=== PATIENT | male | born 1975 | race African-American/Black ===

== ENCOUNTER 2016-03-20 02:59 | Emergency (ER) | payer OTHER ==
[2016-03-20] MEDS ORDERED: ONDANSETRON 4MG/2ML VIAL (J2405) As Ordered ONE (04:07)
[2016-03-20] MEDS ORDERED: KETOROLAC 30 MG/ML VIAL (J1885) As Ordered ONE (04:07)
[2016-03-20 04:23] LABS: BASO # 0.2 K/mm3 (0.0-0.2); EOS # 0.1 K/mm3 (0.0-0.50); EOS % 0.6 % (0.0-3.0); LARGE UNSTAINED CELL # 0.1 K/mm3 (0.0-0.4); LARGE UNSTAINED CELL % 0.6 % (0.0-4.0); LYMPH # 1.2 K/mm3 (1.5-4.5); LYMPH % 5.8 % (24.0-44.0); MEAN CORPUSCULAR HEMOGLOBIN 29.7 pg (27.0-33.0); MEAN CORPUSCULAR HGB CONC 32.1 g/dl (32.0-36.5); MEAN CORPUSCULAR VOLUME 92.7 fl (80.0-96.0); MONO # 1.5 K/mm3 (0.0-0.8); NEUTROPHILS # 15.4 K/mm3 (1.8-7.7); NEUTROPHILS % 83.9 % (36.0-66.0); PLATELET COUNT, AUTOMATED 422 k/mm3 (150-450); RED CELL DISTRIBUTION WIDTH 13.5 % (11.5-14.5); WHITE BLOOD COUNT 18.4 K/mm3 (4.0-10.0)
[2016-03-20 04:29] LABS: AMPHETAMINES LEVEL URINE NEGATIVE (NEGATIVE); BENZODIAZEPINES URINE NEGATIVE (NEGATIVE); COCAINE METABOLITE URINE NEGATIVE (NEGATIVE); CONTROL LINE INT CTR LINE PRESENT; METHADONE URINE NEGATIVE (NEGATIVE); OPIATES URINE NEGATIVE (NEGATIVE); TRICYCLIC ANTIDEPRESS URINE NEGATIVE (NEGATIVE)
[2016-03-20 04:30] LABS: ALBUMIN 3.8 GM/DL (3.2-5.2); ALBUMIN/GLOBULIN RATIO 1.19 (1.00-1.93); ALKALINE PHOSPHATASE 93 U/L (45-117); ALT/SGPT 39 U/L (12-78); AMYLASE 62 U/L (25-115); ANION GAP 11 MEQ/L (8-16); AST/SGOT 18 U/L (15-37); BILIRUBIN,DIRECT 0.2 MG/DL (0.0-0.2); BILIRUBIN,TOTAL 0.6 MG/DL (0.2-1.0); BLOOD UREA NITROGEN 8 MG/DL (7-18); CALCIUM LEVEL 8.5 MG/DL (8.5-10.1); CARBON DIOXIDE LEVEL 30 MEQ/L (21-32); CHLORIDE LEVEL 104 MEQ/L (98-107); CREATININE FOR GFR 1.21 MG/DL (0.70-1.30); GLOMERULAR FILTRATION RATE > 60.0 (>60); GLUCOSE, FASTING 102 MG/DL (70-105); POTASSIUM SERUM 3.9 MEQ/L (3.5-5.1); SODIUM LEVEL 145 MEQ/L (136-145)
[2016-03-20] MEDS ORDERED: ISOVUE-370 76% 100ML VIAL (Q9967) As Ordered ONE (05:07)
--- NOTE | 2016-03-20 06:00 | REPUSA ---
CLINICAL HISTORY: Abdominal pain. TECHNIQUE: Multiple axial, sagittal and coronal CT images were obtained through the abdomen and pelvi s after administration of intravenous contrast material. COMMENTS: Moderate large bowel fecal stasis. The liver is of uniform attenuation without mass or defect. There is no intra or extrahepatic biliary ductal dilatation. The spleen is normal. The gallbladder is within normal limits. The pancreas is of normal contour and attenuation characteristics. There is no evidence of adrenal mass. Both kidneys demonstrate prompt and equal nephrograms. The kidneys are normal in size, shape and conf iguration. There is no evidence of renal or ureteral mass. No renal or ureteral calculi are identifie d. There is no hydroureter or hydronephrosis. No evidence for appendicitis. There is no bowel wall thickening. No evidence for small or large clair l obstruction. There is no evidence of abdominal ascites or lymphadenopathy. There is no evidence of intrinsic or extrinsic bladder mass. There is no pelvic ascites or lymphadeno quincy. Images of the lung bases show no evidence of pleural or parenchymal mass. Minimal right pleural effus ion. Atelectatic airspace disease of the lower lobes. The bony structures are free of lytic or blastic lesions. Mild diffuse thickening of the wall of the bladder. IMPRESSION: Large bowel fecal stasis. Minimal right pleural effusion. Passive atelectatic airspace disease of the lower lobes. Mildly thickened bladder. Thank you for your kind referral of this patient.
--- NOTE | 2016-03-20 06:56 | EDDOCDS ---
Physician Documentation [facility] Name: Marcelo Sotelo Age: 40 yrs Sex: Male : 1975 Arrival Date: 03/20/2016 Time: 02:59 Bed 17 Private MD: Disposition: 03/20/16 06:39 Discharged to Home/Self Care. Impression: Noninfective gastroenteritis and colitis, unspecified. - Condition is Stable. - Discharge Instructions: Clear Liquid Diet, Viral Gastroenteritis, Viral Gastroenteritis, [id number]. - Prescriptions for Zofran 4 mg Oral Tablet - take 1 tablet by ORAL route 4 times per day As needed; 10 tablet. - Medication Reconciliation, Local Pharmacy Hours form. - Follow up: Private Physician; When: As previously arranged; Reason: Continuance of care. - Problem is an acute exacerbation. - Symptoms have improved. Historical: - Allergies: No known drug Allergies; - Home Meds: 1. none - PMHx: Asthma; - Social history: Smoking status: Patient states former smoker of tobacco. No barriers to communication noted, The patient speaks fluent Dutch, Speaks appropriately for age. - Family history: Not pertinent. - : The pt / caregiver states he / she is not on anticoagulants. Unable to Verify Home Med List with the patient / caregiver. - Exposure Risk Screening:: None identified. Vital Signs: 03/20 03:18 BP 127 / 65; Pulse 106; Resp 20; Temp 99.2(O); Pulse Ox 100% on R/A; Weight 93.44 kg / brent 206 lbs (R); Height 6 ft. 2 in. (187.96 cm) (R); Pain 8/10; 06:46 BP 112 / 57 RA Sitting (auto/reg); Pulse 92; Resp 16; Temp 99.1(O); Pulse Ox 97% ; Pain jrd 2/10; 03:18 Body Mass Index 26.45 (93.44 kg, 187.96 cm) brent MDM: 03:30 -Influenza A&B Rapid Antigen - Nose Ordered. EDMS 03:41 NS 0.9% 1000 ml IV at bolus once ordered. mm11 03:41 Ondansetron 4 mg IVP once ordered. mm11 03:41 ketorolac 30 mg IVP once ordered. mm11 03:41 IV Saline Lock ordered. mm11 03:41 Undress patient appropriately for examination ordered. mm11 03:42 Amylase Ordered. EDMS 03:42 Basic Metabolic Profile Ordered. EDMS 03:42 CBC with Diff Ordered. EDMS 03:42 Lipase Ordered. EDMS 03:42 Liver Profile Ordered. EDMS 03:42 Urinalysis Ordered. EDMS 03:42 Urine Culture Ordered. EDMS 03:42 NOTHING BY MOUTH+DIET ordered. EDMS 04:12 Drug Eval Toxicology ED Only Ordered. EDMS 04:49 CBC with Diff Reviewed. mm11 04:49 Urinalysis Reviewed. mm11 04:49 -Influenza A&B Rapid Antigen - Nose Reviewed. mm11 04:49 Amylase Reviewed. mm11 04:49 Basic Metabolic Profile Reviewed. mm11 04:49 Lipase Reviewed. mm11 04:49 Liver Profile Reviewed. mm11 04:49 Drug Eval Toxicology ED Only Reviewed. mm11 04:50 CT ABD & PELVIS: IV Contrast Only Ordered. EDMS 04:56 Financial registration complete. hs2 05:09 [facility] Payment Agreement was scanned into [employer] and attached to record. hs2 06:33 CT ABD & PELVIS: IV Contrast Only Reviewed. mm11 Administered Medications: 04:15 Drug: NS 0.9% 1000 ml [sodium chloride 0.9 % intravenous solution] Route: IV; Rate: ko2 bolus; Site: right antecubital; 04:15 Drug: Ondansetron 4 mg [ondansetron HCl 2 mg/mL intravenous solution (2 mL)] Route: ko2 IVP; Site: right antecubital; 04:15 Drug: ketorolac 30 mg [ketorolac 30 mg/mL (1 mL) injection solution (1 mL)] Route: IVP; ko2 Site: right antecubital; Signatures: Dispatcher [employer] EDMS Sj Pat DO DO mm11 Yoselin Oakley RN RN ko2 Kusum Myles, Reg Reg hs2 The chart was reviewed and I authenticate all verbal orders and agree with the evaluation and treatment provided.Attachments: 05:09 [facility] Payment Agreement hs2 MTDD
--- NOTE | 2016-03-20 06:56 | EDDOCDS ---
Nurse's Notes [facility] Name: Marcelo Sotelo Age: 40 yrs Sex: Male : 1975 Arrival Date: 03/20/2016 Time: 02:59 Bed 17 Private MD: Diagnosis: Noninfective gastroenteritis and colitis, unspecified Presentation: 03/20 03:05 Presenting complaint: EMS states: not feeling well since yesterday. Started vomiting ko2 around 1 am. Fever of 102.7. Pt hasn't eaten in 24 hours. Nurse started a 20 gauge IV. Suicide/Homicide risk assessment- the patient denies having any suicidal and/or homicidal ideations and does not present with any other emotional, behavioral or mental health complaints. 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 Transition of care: patient was not received from another setting of care. Care prior to arrival: See EMS report. 03:05 Acuity: SIDRA Level 3 ko2 03:05 Method Of Arrival: Ambulance ko2 03:21 Adult Sepsis Screening: The patient does not have new or worsening altered mentation. ko2 Patient's respiratory rate is less than 22. Systolic blood pressure is greater than 100. Patient has a qSOFA score of 0- Negative Sepsis Screen. Care prior to arrival: Glucose check. 67. Triage Assessment: 03:18 General: Appears in no apparent distress, Behavior is appropriate for age, cooperative. ko2 Pain: Location: "aches all over". HIV screening NA for this visit Offered previously. The patient is triaged at the bedside. See Assessment in Nurses Notes section of ED record. Neurological: No deficits noted. Cardiovascular: Heart tones S1 S2 present. Respiratory: Airway is patent Respiratory effort is even, unlabored. GI: Abdomen is non- distended Bowel sounds present X 4 quads. Reports nausea, vomiting. Derm: Skin is normal. Musculoskeletal: Range of motion intact in all extremities. Historical: - Allergies: No known drug Allergies; - Home Meds: 1. none - PMHx: Asthma; - Social history: Smoking status: Patient states former smoker of tobacco. No barriers to communication noted, The patient speaks fluent Palauan, Speaks appropriately for age. - Family history: Not pertinent. - : The pt / caregiver states he / she is not on anticoagulants. Unable to Verify Home Med List with the patient / caregiver. - Exposure Risk Screening:: None identified. Screenin:20 Screening information is obtained from the patient. Fall risk: No risks identified. ko2 Assistance ADL's: requires no assistance with activities of daily living. Abuse/DV Screen: The patient / caregiver reports he/she is: not in a situation that causes fear, pain or injury. Nutritional screening: No deficits noted. Advance Directives: Currently, there is no health care proxy. There is no active DNR order. There is no living will. There is no Power of Flash Developer. home support is adequate. Assessment: 03:20 General: See triage assessment. ko2 04:30 General: Appears in no apparent distress, comfortable, Behavior is appropriate for age, ko2 cooperative. Pain: Location: "all over" Pain currently is 2 out of 10 on a pain scale. Neurological: Level of Consciousness is awake, alert. Respiratory: Airway is patent Respiratory effort is even, unlabored. GI: Denies nausea, vomiting. Derm: Skin is normal. 05:36 General: Appears in no apparent distress, comfortable, Behavior is appropriate for age, ko2 cooperative. Neurological: Level of Consciousness is awake, alert. Respiratory: Airway is patent Respiratory effort is even, unlabored. Derm: Skin is normal. 06:28 General: Appears in no apparent distress, comfortable, Behavior is appropriate for age, ko2 cooperative. Neurological: Level of Consciousness is awake, alert. Respiratory: Airway is patent Respiratory effort is even, unlabored. Derm: Skin is normal. 06:52 GI: Abd is soft. ko2 Vital Signs: 03:18 BP 127 / 65; Pulse 106; Resp 20; Temp 99.2(O); Pulse Ox 100% on R/A; Weight 93.44 kg brent (R); Height 6 ft. 2 in. (187.96 cm) (R); Pain 8/10; 06:46 BP 112 / 57 RA Sitting (auto/reg); Pulse 92; Resp 16; Temp 99.1(O); Pulse Ox 97% ; Pain jrd 2/10; 03:18 Body Mass Index 26.45 (93.44 kg, 187.96 cm) brent Vitals: 05:36 Log In Time N/A - ambulance arrival. ko2 ED Course: 03:03 Patient visited by Alize Braden, Shells Inspector. ml3 03:03 Patient moved to Waiting ml3 03:04 Yoselin Oakley,RN is Primary Nurse. ml3 03:04 Patient moved to 17 ml3 03:08 Triage Initiated ko2 03:19 Patient visited by Tanya Harper PCA. brent 03:19 Pt greeted and oriented to ED. Patient advised of names of staff involved in care, brent location of call [place], wait times and NPO status. Accompanied by Law Enforcement, Patient has correct armband on for positive identification. Bed in low position. Call light in reach. Side rails up X2. Pulse ox on. NIBP on. 03:25 Sj Pat DO is Attending Physician. mm11 03:25 Patient visited by Sj Pat DO. mm11 03:33 -Influenza A&B Rapid Antigen - Nose Sent. ko2 03:40 Patient visited by Sj Pat DO. mm11 04:06 Amylase Sent. ko2 04:06 Basic Metabolic Profile Sent. ko2 04:07 CBC with Diff Sent. ko2 04:07 Lipase Sent. ko2 04:07 Liver Profile Sent. ko2 04:07 Urinalysis Sent. ko2 04:07 Urine Culture Sent. ko2 04:15 Patient visited by Yoselin Oakley RN. ko2 04:15 Drug Eval Toxicology ED Only Sent. ko2 05:06 Patient visited by Yoselin Oakley RN. ko2 05:09 [facility] Payment Agreement was scanned into [employer] and attached to record. hs2 05:13 Patient name changed from Marcelo\\S\\\\S\\Sotelo\\S\\ to Marcelo\\S\\ \\S\\Sotelo. EDMS 06:02 Patient visited by Yoselin Oakley RN. ko2 06:16 CT ABD & PELVIS: IV Contrast Only Returned. EDMS 06:47 Patient visited by Les Wills PCA. jrd 06:51 Discontinued lock intact, bleeding controlled, pressure dressing applied, No ko2 redness/swelling at site. No procedures done that require assistance. 06:52 The patient / caregiver is instructed regarding the plan of care and ED course. ko2 Administered Medications: 04:15 Drug: NS 0.9% 1000 ml [sodium chloride 0.9 % intravenous solution] Route: IV; Rate: ko2 bolus; Site: right antecubital; 04:15 Drug: Ondansetron 4 mg [ondansetron HCl 2 mg/mL intravenous solution (2 mL)] Route: ko2 IVP; Site: right antecubital; 04:15 Drug: ketorolac 30 mg [ketorolac 30 mg/mL (1 mL) injection solution (1 mL)] Route: IVP; ko2 Site: right antecubital; Order Results: Lab Order: -Influenza A&B Rapid Antigen - Nose; SPEC'M 03/20/16 03:32 Test: INFLUENZA A RAPID SCR by ICA; Value: INFLUENZA A RESULTS NEGATIVE; Status: F Test: INFLUENZA A RAPID SCR by ICA; Value: Comments:; Status: F Test: INFLUENZA B RAPID SCR by ICA; Value: INFLUENZA B RESULTS NEGATIVE; Status: F Test Note: ; The Influenza test is a direct rapid immunoassay for the qualitative detection of Influenza viral antigen. Cell culture (Viral Culture) testing should be considered to confirm NEGATIVE results and to assist in detecting other viruses that can provide similar clinical symptoms. Please contact the lab within 24 hours ([phone]) if confirmatory testing is desired. Lab Order: Amylase; SPEC'M 03/20/16 04:03 Test: AMYLASE; Value: 62; Range: 25-115; Units: U/L; Status: F Lab Order: Basic Metabolic Profile; SPEC'M 03/20/16 04:03 Test: GLUCOSE, FASTING; Value: 102; Range: 70-105; Units: MG/DL; Status: F Test: BLOOD UREA NITROGEN; Value: 8; Range: 7-18; Units: MG/DL; Status: F Test: CREATININE FOR GFR; Value: 1.21; Range: 0.70-1.30; Units: MG/DL; Status: F Test: GLOMERULAR FILTRATION RATE; Value: > 60.0; Range: >60; Status: F Test: SODIUM LEVEL; Value: 145; Range: 136-145; Units: MEQ/L; Status: F Test: POTASSIUM SERUM; Value: 3.9; Range: 3.5-5.1; Units: MEQ/L; Status: F Test: CHLORIDE LEVEL; Value: 104; Range: 98-107; Units: MEQ/L; Status: F Test: CARBON DIOXIDE LEVEL; Value: 30; Range: 21-32; Units: MEQ/L; Status: F Test: ANION GAP; Value: 11; Range: 8-16; Units: MEQ/L; Status: F Test: CALCIUM LEVEL; Value: 8.5; Range: 8.5-10.1; Units: MG/DL; Status: F Test Note: ; Units are mL/min/1.73 m2 Chronic Kidney Disease Staging per NKF: Stage I & II GFR >=60 Normal to Mildly Decreased Stage III GFR 30-59 Moderately Decreased Stage IV GFR 15-29 Severely Decreased Stage V GFR <15 Very Little GFR Left ESRD GFR <15 on CABIN AGENT Lab Order: CBC with Diff; SPEC'M 03/20/16 04:03 Test: WHITE BLOOD COUNT; Value: 18.4; Range: 4.0-10.0; Abnormal: Above high normal; Units: K/mm3; Status: F Test: RED BLOOD COUNT; Value: 5.19; Range: 4.30-6.10; Units: M/mm3; Status: F Test: HEMOGLOBIN; Value: 15.4; Range: 14.0-18.0; Units: g/dl; Status: F Test: HEMATOCRIT; Value: 48.1; Range: 42.0-52.0; Units: %; Status: F Test: MEAN CORPUSCULAR VOLUME; Value: 92.7; Range: 80.0-96.0; Units: fl; Status: F Test: MEAN CORPUSCULAR HEMOGLOBIN; Value: 29.7; Range: 27.0-33.0; Units: pg; Status: F Test: MEAN CORPUSCULAR HGB CONC; Value: 32.1; Range: 32.0-36.5; Units: g/dl; Status: F Test: RED CELL DISTRIBUTION WIDTH; Value: 13.5; Range: 11.5-14.5; Units: %; Status: F Test: PLATELET COUNT, AUTOMATED; Value: 422; Range: 150-450; Units: k/mm3; Status: F Test: NEUTROPHILS %; Value: 83.9; Range: 36.0-66.0; Abnormal: Above high normal; Units: %; Status: F Test: LYMPH %; Value: 5.8; Range: 24.0-44.0; Abnormal: Below low normal; Units: %; Status: F Test: MONO %; Value: 8.0; Range: 0.0-5.0; Abnormal: Above high normal; Units: %; Status: F Test: EOS %; Value: 0.6; Range: 0.0-3.0; Units: %; Status: F Test: BASO %; Value: 1.0; Range: 0.0-1.0; Units: %; Status: F Test: LARGE UNSTAINED CELL %; Value: 0.6; Range: 0.0-4.0; Units: %; Status: F Test: NEUTROPHILS #; Value: 15.4; Range: 1.8-7.7; Abnormal: Above high normal; Units: K/mm3; Status: F Test: LYMPH #; Value: 1.2; Range: 1.5-4.5; Abnormal: Below low normal; Units: K/mm3; Status: F Test: MONO #; Value: 1.5; Range: 0.0-0.8; Abnormal: Above high normal; Units: K/mm3; Status: F Test: EOS #; Value: 0.1; Range: 0.0-0.50; Units: K/mm3; Status: F Test: BASO #; Value: 0.2; Range: 0.0-0.2; Units: K/mm3; Status: F Test: LARGE UNSTAINED CELL #; Value: 0.1; Range: 0.0-0.4; Units: K/mm3; Status: F Lab Order: Lipase; [facility] 03/20/16 04:03 Test: LIPASE; Value: 113; Range: 73-393; Units: U/L; Status: F Lab Order: Liver Profile; [facility] 03/20/16 04:03 Test: AST/SGOT; Value: 18; Range: 15-37; Units: U/L; Status: F Test: ALT/SGPT; Value: 39; Range: 12-78; Units: U/L; Status: F Test: ALKALINE PHOSPHATASE; Value: 93; Range: 45-117; Units: U/L; Status: F Test: BILIRUBIN,TOTAL; Value: 0.6; Range: 0.2-1.0; Units: MG/DL; Status: F Test: BILIRUBIN,DIRECT; Value: 0.2; Range: 0.0-0.2; Units: MG/DL; Status: F Test: TOTAL PROTEIN; Value: 7.0; Range: 6.4-8.2; Units: GM/DL; Status: F Test: ALBUMIN; Value: 3.8; Range: 3.2-5.2; Units: GM/DL; Status: F Test: ALBUMIN/GLOBULIN RATIO; Value: 1.19; Range: 1.00-1.93; Status: F Lab Order: Urinalysis; SPEC'M 03/20/16 04:03 Test: APPEARANCE, URINE; Value: CLEAR; Range: CLEAR; Status: F Test: COLOR, URINE; Value: YELLOW; Range: YELLOW; Status: F Test: PH,URINE; Value: 8.0; Range: 5.0-9.0; Units: UNITS; Status: F Test: SPECIFIC GRAVITY URINE AUTO; Value: 1.015; Range: 1.002-1.035; Status: F Test: PROTEIN, URINE AUTO; Value: NEGATIVE; Range: NEGATIVE; Units: mg/dL; Status: F Test: GLUCOSE, URINE (UA) AUTO; Value: NEGATIVE; Range: NEGATIVE; Units: mg/dL; Status: F Test: KETONE, URINE AUTO; Value: NEGATIVE; Range: NEGATIVE; Units: mg/dL; Status: F Test: UROBILINOGEN, URINE AUTO; Value: 2.0; Range: 0.0-2.0; Abnormal: Above high normal; Units: mg/dL; Status: F Test: BILIRUBIN, URINE AUTO; Value: NEGATIVE; Range: NEGATIVE; Status: F Test: NITRITE, URINE AUTO; Value: NEGATIVE; Range: NEGATIVE; Status: F Test: LEUKOCYTE ESTERASE, URINE AUTO; Value: TRACE; Range: NEGATIVE; Abnormal: Above high normal; Status: F Test: BLOOD, URINE BLOOD; Value: NEGATIVE; Range: NEGATIVE; Status: F Test: WBC, URINE AUTO; Value: 23; Range: 0-3; Abnormal: Above high normal; Units: /HPF; Status: F Test: RBC, URINE AUTO; Value: 2; Range: 0-3; Units: /HPF; Status: F Test: BACTERIA, URINE AUTO; Value: 1+; Range: NEGATIVE; Abnormal: Above high normal; Status: F Test: SQUAMOUS EPITHELIAL CELL UR AU; Value: 0; Range: 0-6; Units: /HPF; Status: F Test: MUCUS, URINE; Value: SMALL; Range: NEGATIVE; Status: F Test: HYALINE CAST, URINE AUTO; Value: 0; Range: 0-1; Units: /LPF; Status: F Lab Order: Drug Eval Toxicology ED Only; SPEC'M 03/20/16 04:03 Test: AMPHETAMINES LEVEL URINE; Value: NEGATIVE; Range: NEGATIVE; Status: F Test: BARBITURATES URINE; Value: NEGATIVE; Range: NEGATIVE; Status: F Test: BENZODIAZEPINES URINE; Value: NEGATIVE; Range: NEGATIVE; Status: F Test: CANNABINOIDS URINE; Value: NEGATIVE; Range: NEGATIVE; Status: F Test: COCAINE METABOLITE URINE; Value: NEGATIVE; Range: NEGATIVE; Status: F Test: METHADONE URINE; Value: NEGATIVE; Range: NEGATIVE; Status: F Test: OPIATES URINE; Value: NEGATIVE; Range: NEGATIVE; Status: F Test: TRICYCLIC ANTIDEPRESS URINE; Value: NEGATIVE; Range: NEGATIVE; Status: F Test Note: ; ALL PRESUMPTIVE POSITIVE FINDINGS ARE UNCONFIRMED NORMAL VALUES THRESHOLD IN NG/ML AMPHETAMINES 1000 METHAMPHETAMINES 1000 BARBITURATES 300 BENZODIAZEPINES 300 CANNABINOIDS (THC) 50 COCAINE METABOLITE 300 METHADONE 300 OPIATES 300 PHENCYCLIDINE 25 TRICYCLIC ANTIDEPRESSANTS 1000 RESULTS ARE FOR MEDICAL PURPOSES ONLY. ALL URINE SPECIMENS WILL BE SAVED FOR 3 DAYS. IF CONFIRMATION OF A PRESUMPTIVE POSTIVE SCREEN RESULT IS DESIRED, CALL CHEMISTRY ([phone]) AND REQUEST URINE TO BE SENT TO REFERENCE LAB. FOR A LIST OF CLOSELY RELATED COMPOUNDS PLEASE CALL THE LAB. Radiology Order: CT ABD & PELVIS: IV Contrast Only Test: CT ABD & PELVIS: IV Contrast Only REASON FOR EXAMINATION: Abdomen Pain; ; CLINICAL HISTORY: Abdominal pain.; TECHNIQUE: Multiple axial, sagittal and coronal CT images were obtained through the abdomen and pelvi; s after administration of intravenous contrast material.; COMMENTS:; Moderate large bowel fecal stasis.; The liver is of uniform attenuation without mass or defect. There is no intra or extrahepatic biliary; ductal dilatation. The spleen is normal. The gallbladder is within normal limits. The pancreas is of; normal contour and attenuation characteristics. There is no evidence of adrenal mass.; Both kidneys demonstrate prompt and equal nephrograms. The kidneys are normal in size, shape and conf; iguration. There is no evidence of renal or ureteral mass. No renal or ureteral calculi are identifie; d. There is no hydroureter or hydronephrosis.; No evidence for appendicitis. There is no bowel wall thickening. No evidence for small or large clair; l obstruction. There is no evidence of abdominal ascites or lymphadenopathy.; There is no evidence of intrinsic or extrinsic bladder mass. There is no pelvic ascites or lymphadeno; quincy.; Images of the lung bases show no evidence of pleural or parenchymal mass. Minimal right pleural effus; ion.; Atelectatic airspace disease of the lower lobes.; The bony structures are free of lytic or blastic lesions. Mild diffuse thickening of the wall of the; bladder.; IMPRESSION:; Large bowel fecal stasis.; Minimal right pleural effusion.; Passive atelectatic airspace disease of the lower lobes.; Mildly thickened bladder.; Thank you for your kind referral of this patient.; ; Outcome: 06:39 Discharge ordered by Provider. mm11 06:51 Admission hand-off: Report called to [facility] at [facility]. mar 06:52 Discharge Assessment: Patient awake, alert and oriented x 3. No cognitive and/or ko2 functional deficits noted. Patient verbalized understanding of disposition instructions. patient administered narcotics - no. The following High Risk Discharge criteria are identified: None. Discharged to [facility]. Condition: stable. Discharge instructions given to patient, Instructed on discharge instructions, follow up and referral plans. Demonstrated understanding of instructions, Pt was receptive of discharge instructions/ teaching. CT Study completed. Property :Personal belongings accompany Pt. 06:55 Patient left the ED. ko2 Signatures: Dispatcher [employer] EDEmilie Roblero RN RN jan Lopresti, Mary-Elizabeth, Shells Inspector Unit ml3 Sj Pat DO DO mm11 Tanya Harper, FIBER OPTIC TECHNICIAN FIBER OPTIC TECHNICIAN Yoselin Zambrano RN RN ko2 Les Wills, FIBER OPTIC TECHNICIAN FIBER OPTIC TECHNICIAN Kusum Harding, Reg Reg hs2 MTDD
--- NOTE | 2016-03-22 07:56 | EDDOCDS ---
Physician Documentation [facility] Name: Marcelo Sotelo Age: 40 yrs Sex: Male : 1975 Arrival Date: 03/20/2016 Time: 02:59 Bed 17 Private MD: Disposition: 03/20/16 06:39 Discharged to Home/Self Care. Impression: Noninfective gastroenteritis and colitis, unspecified. - Condition is Stable. - Discharge Instructions: Clear Liquid Diet, Viral Gastroenteritis, Viral Gastroenteritis, [id number]. - Prescriptions for Zofran 4 mg Oral Tablet - take 1 tablet by ORAL route 4 times per day As needed; 10 tablet. - Medication Reconciliation, Local Pharmacy Hours form. - Follow up: Private Physician; When: As previously arranged; Reason: Continuance of care. - Problem is an acute exacerbation. - Symptoms have improved. Historical: - Allergies: No known drug Allergies; - Home Meds: 1. none - PMHx: Asthma; - Social history: Smoking status: Patient states former smoker of tobacco. No barriers to communication noted, The patient speaks fluent Vietnamese, Speaks appropriately for age. - Family history: Not pertinent. - : The pt / caregiver states he / she is not on anticoagulants. Unable to Verify Home Med List with the patient / caregiver. - Exposure Risk Screening:: None identified. Vital Signs: 03/20 03:18 BP 127 / 65; Pulse 106; Resp 20; Temp 99.2(O); Pulse Ox 100% on R/A; Weight 93.44 kg / brent 206 lbs (R); Height 6 ft. 2 in. (187.96 cm) (R); Pain 8/10; 06:46 BP 112 / 57 RA Sitting (auto/reg); Pulse 92; Resp 16; Temp 99.1(O); Pulse Ox 97% ; Pain jrd 2/10; 03:18 Body Mass Index 26.45 (93.44 kg, 187.96 cm) brent MDM: 03:30 -Influenza A&B Rapid Antigen - Nose Ordered. EDMS 03:41 NS 0.9% 1000 ml IV at bolus once ordered. mm11 03:41 Ondansetron 4 mg IVP once ordered. mm11 03:41 ketorolac 30 mg IVP once ordered. mm11 03:41 IV Saline Lock ordered. mm11 03:41 Undress patient appropriately for examination ordered. mm11 03:42 Amylase Ordered. EDMS 03:42 Basic Metabolic Profile Ordered. EDMS 03:42 CBC with Diff Ordered. EDMS 03:42 Lipase Ordered. EDMS 03:42 Liver Profile Ordered. EDMS 03:42 Urinalysis Ordered. EDMS 03:42 Urine Culture Ordered. EDMS 03:42 NOTHING BY MOUTH+DIET ordered. EDMS 04:12 Drug Eval Toxicology ED Only Ordered. EDMS 04:49 CBC with Diff Reviewed. mm11 04:49 Urinalysis Reviewed. mm11 04:49 -Influenza A&B Rapid Antigen - Nose Reviewed. mm11 04:49 Amylase Reviewed. mm11 04:49 Basic Metabolic Profile Reviewed. mm11 04:49 Lipase Reviewed. mm11 04:49 Liver Profile Reviewed. mm11 04:49 Drug Eval Toxicology ED Only Reviewed. mm11 04:50 CT ABD & PELVIS: IV Contrast Only Ordered. EDMS 04:56 Financial registration complete. hs2 05:09 [facility] Payment Agreement was scanned into [facility] and attached to record. hs2 06:33 CT ABD & PELVIS: IV Contrast Only Reviewed. mm11 12:28 T-Sheet-- Draft Copy was scanned into [facility] and attached to record. gb 12:28 Radiology Report was scanned into [facility] and attached to record. gb 13:45 PCR was scanned into [facility] and attached to record. gb Administered Medications: 04:15 Drug: NS 0.9% 1000 ml [sodium chloride 0.9 % intravenous solution] Route: IV; Rate: ko2 bolus; Site: right antecubital; 04:15 Drug: Ondansetron 4 mg [ondansetron HCl 2 mg/mL intravenous solution (2 mL)] Route: ko2 IVP; Site: right antecubital; 04:15 Drug: ketorolac 30 mg [ketorolac 30 mg/mL (1 mL) injection solution (1 mL)] Route: IVP; ko2 Site: right antecubital; Signatures: Dispatcher [employer] EDMS Gabbie Lopez, Reg Reg gb Sj Pat DO DO mm11 Yoselin Oakley RN RN ko2 Kusum Myles, Reg Reg hs2 The chart was reviewed and I authenticate all verbal orders and agree with the evaluation and treatment provided.Attachments: 05:09 [facility] Payment Agreement hs2 12:28 T-Sheet-- Draft Copy gb Chart Complete MTDD
--- NOTE | 2016-03-22 07:56 | EDDOCDS ---
Physician Documentation [facility] Name: Marcelo Sotelo Age: 40 yrs Sex: Male : 1975 Arrival Date: 03/20/2016 Time: 02:59 Bed 17 Private MD: Disposition: 03/20/16 06:39 Discharged to Home/Self Care. Impression: Noninfective gastroenteritis and colitis, unspecified. - Condition is Stable. - Discharge Instructions: Clear Liquid Diet, Viral Gastroenteritis, Viral Gastroenteritis, [id number]. - Prescriptions for Zofran 4 mg Oral Tablet - take 1 tablet by ORAL route 4 times per day As needed; 10 tablet. - Medication Reconciliation, Local Pharmacy Hours form. - Follow up: Private Physician; When: As previously arranged; Reason: Continuance of care. - Problem is an acute exacerbation. - Symptoms have improved. Historical: - Allergies: No known drug Allergies; - Home Meds: 1. none - PMHx: Asthma; - Social history: Smoking status: Patient states former smoker of tobacco. No barriers to communication noted, The patient speaks fluent Guatemalan, Speaks appropriately for age. - Family history: Not pertinent. - : The pt / caregiver states he / she is not on anticoagulants. Unable to Verify Home Med List with the patient / caregiver. - Exposure Risk Screening:: None identified. Vital Signs: 03/20 03:18 BP 127 / 65; Pulse 106; Resp 20; Temp 99.2(O); Pulse Ox 100% on R/A; Weight 93.44 kg / brent 206 lbs (R); Height 6 ft. 2 in. (187.96 cm) (R); Pain 8/10; 06:46 BP 112 / 57 RA Sitting (auto/reg); Pulse 92; Resp 16; Temp 99.1(O); Pulse Ox 97% ; Pain jrd 2/10; 03:18 Body Mass Index 26.45 (93.44 kg, 187.96 cm) brent MDM: 03:30 -Influenza A&B Rapid Antigen - Nose Ordered. EDMS 03:41 NS 0.9% 1000 ml IV at bolus once ordered. mm11 03:41 Ondansetron 4 mg IVP once ordered. mm11 03:41 ketorolac 30 mg IVP once ordered. mm11 03:41 IV Saline Lock ordered. mm11 03:41 Undress patient appropriately for examination ordered. mm11 03:42 Amylase Ordered. EDMS 03:42 Basic Metabolic Profile Ordered. EDMS 03:42 CBC with Diff Ordered. EDMS 03:42 Lipase Ordered. EDMS 03:42 Liver Profile Ordered. EDMS 03:42 Urinalysis Ordered. EDMS 03:42 Urine Culture Ordered. EDMS 03:42 NOTHING BY MOUTH+DIET ordered. EDMS 04:12 Drug Eval Toxicology ED Only Ordered. EDMS 04:49 CBC with Diff Reviewed. mm11 04:49 Urinalysis Reviewed. mm11 04:49 -Influenza A&B Rapid Antigen - Nose Reviewed. mm11 04:49 Amylase Reviewed. mm11 04:49 Basic Metabolic Profile Reviewed. mm11 04:49 Lipase Reviewed. mm11 04:49 Liver Profile Reviewed. mm11 04:49 Drug Eval Toxicology ED Only Reviewed. mm11 04:50 CT ABD & PELVIS: IV Contrast Only Ordered. EDMS 04:56 Financial registration complete. hs2 05:09 [facility] Payment Agreement was scanned into [employer] and attached to record. hs2 06:33 CT ABD & PELVIS: IV Contrast Only Reviewed. mm11 12:28 T-Sheet-- Draft Copy was scanned into [employer] and attached to record. gb 12:28 Radiology Report was scanned into [facility] and attached to record. gb 13:45 PCR was scanned into [employer] and attached to record. gb Administered Medications: 04:15 Drug: NS 0.9% 1000 ml [sodium chloride 0.9 % intravenous solution] Route: IV; Rate: ko2 bolus; Site: right antecubital; 04:15 Drug: Ondansetron 4 mg [ondansetron HCl 2 mg/mL intravenous solution (2 mL)] Route: ko2 IVP; Site: right antecubital; 04:15 Drug: ketorolac 30 mg [ketorolac 30 mg/mL (1 mL) injection solution (1 mL)] Route: IVP; ko2 Site: right antecubital; Signatures: Dispatcher [employer] EDMS Gabbie Loepz, Reg Reg gb Sj Pat DO DO mm11 Yoselin Oakley RN RN ko2 Kusum Myles, Reg Reg hs2 The chart was reviewed and I authenticate all verbal orders and agree with the evaluation and treatment provided.Attachments: 05:09 [facility] Payment Agreement hs2 12:28 T-Sheet-- Draft Copy gb Chart Complete MTDD
--- NOTE | 2016-03-22 07:56 | EDDOCDS ---
Nurse's Notes [facility] Name: Marcelo Sotelo Age: 40 yrs Sex: Male : 1975 Arrival Date: 03/20/2016 Time: 02:59 Bed 17 Private MD: Diagnosis: Noninfective gastroenteritis and colitis, unspecified Presentation: 03/20 03:05 Presenting complaint: EMS states: not feeling well since yesterday. Started vomiting ko2 around 1 am. Fever of 102.7. Pt hasn't eaten in 24 hours. Nurse started a 20 gauge IV. Suicide/Homicide risk assessment- the patient denies having any suicidal and/or homicidal ideations and does not present with any other emotional, behavioral or mental health complaints. Status: Patient is not a emergency services professional or dependent. Transition of care: patient was not received from another setting of care. Care prior to arrival: See EMS report. 03:05 Acuity: SIDRA Level 3 ko2 03:05 Method Of Arrival: Ambulance ko2 03:21 Adult Sepsis Screening: The patient does not have new or worsening altered mentation. ko2 Patient's respiratory rate is less than 22. Systolic blood pressure is greater than 100. Patient has a qSOFA score of 0- Negative Sepsis Screen. Care prior to arrival: Glucose check. 67. Triage Assessment: 03:18 General: Appears in no apparent distress, Behavior is appropriate for age, cooperative. ko2 Pain: Location: "aches all over". HIV screening NA for this visit Offered previously. The patient is triaged at the bedside. See Assessment in Nurses Notes section of ED record. Neurological: No deficits noted. Cardiovascular: Heart tones S1 S2 present. Respiratory: Airway is patent Respiratory effort is even, unlabored. GI: Abdomen is non- distended Bowel sounds present X 4 quads. Reports nausea, vomiting. Derm: Skin is normal. Musculoskeletal: Range of motion intact in all extremities. Historical: - Allergies: No known drug Allergies; - Home Meds: 1. none - PMHx: Asthma; - Social history: Smoking status: Patient states former smoker of tobacco. No barriers to communication noted, The patient speaks fluent Bruneian, Speaks appropriately for age. - Family history: Not pertinent. - : The pt / caregiver states he / she is not on anticoagulants. Unable to Verify Home Med List with the patient / caregiver. - Exposure Risk Screening:: None identified. Screenin:20 Screening information is obtained from the patient. Fall risk: No risks identified. ko2 Assistance ADL's: requires no assistance with activities of daily living. Abuse/DV Screen: The patient / caregiver reports he/she is: not in a situation that causes fear, pain or injury. Nutritional screening: No deficits noted. Advance Directives: Currently, there is no health care proxy. There is no active DNR order. There is no living will. There is no Power of All Around Gear Machine Operator. home support is adequate. Assessment: 03:20 General: See triage assessment. ko2 04:30 General: Appears in no apparent distress, comfortable, Behavior is appropriate for age, ko2 cooperative. Pain: Location: "all over" Pain currently is 2 out of 10 on a pain scale. Neurological: Level of Consciousness is awake, alert. Respiratory: Airway is patent Respiratory effort is even, unlabored. GI: Denies nausea, vomiting. Derm: Skin is normal. 05:36 General: Appears in no apparent distress, comfortable, Behavior is appropriate for age, ko2 cooperative. Neurological: Level of Consciousness is awake, alert. Respiratory: Airway is patent Respiratory effort is even, unlabored. Derm: Skin is normal. 06:28 General: Appears in no apparent distress, comfortable, Behavior is appropriate for age, ko2 cooperative. Neurological: Level of Consciousness is awake, alert. Respiratory: Airway is patent Respiratory effort is even, unlabored. Derm: Skin is normal. 06:52 GI: Abd is soft. ko2 Vital Signs: 03:18 BP 127 / 65; Pulse 106; Resp 20; Temp 99.2(O); Pulse Ox 100% on R/A; Weight 93.44 kg brent (R); Height 6 ft. 2 in. (187.96 cm) (R); Pain 8/10; 06:46 BP 112 / 57 RA Sitting (auto/reg); Pulse 92; Resp 16; Temp 99.1(O); Pulse Ox 97% ; Pain jrd 2/10; 03:18 Body Mass Index 26.45 (93.44 kg, 187.96 cm) brent Vitals: 05:36 Log In Time N/A - ambulance arrival. ko2 ED Course: 03:03 Patient visited by Alize Braden, Plastic Top Assembler. ml3 03:03 Patient moved to Waiting ml3 03:04 Yoselin Oakley,RN is Primary Nurse. ml3 03:04 Patient moved to 17 ml3 03:08 Triage Initiated ko2 03:19 Patient visited by Tanya Harper PCA. brent 03:19 Pt greeted and oriented to ED. Patient advised of names of staff involved in care, brent location of call [place], wait times and NPO status. Accompanied by Law Enforcement, Patient has correct armband on for positive identification. Bed in low position. Call light in reach. Side rails up X2. Pulse ox on. NIBP on. 03:25 Sj Pat DO is Attending Physician. mm11 03:25 Patient visited by Sj Pat DO. mm11 03:33 -Influenza A&B Rapid Antigen - Nose Sent. ko2 03:40 Patient visited by Sj Pat DO. mm11 04:06 Amylase Sent. ko2 04:06 Basic Metabolic Profile Sent. ko2 04:07 CBC with Diff Sent. ko2 04:07 Lipase Sent. ko2 04:07 Liver Profile Sent. ko2 04:07 Urinalysis Sent. ko2 04:07 Urine Culture Sent. ko2 04:15 Patient visited by Yoselin Oakley RN. ko2 04:15 Drug Eval Toxicology ED Only Sent. ko2 05:06 Patient visited by Yoselin Oakley RN. ko2 05:09 [facility] Payment Agreement was scanned into [employer] and attached to record. hs2 05:13 Patient name changed from Marcelo\\S\\\\S\\Sotelo\\S\\ to Marcelo\\S\\ \\S\\Sotelo. EDMS 06:02 Patient visited by Yoselin Oakley RN. ko2 06:16 CT ABD & PELVIS: IV Contrast Only Returned. EDMS 06:47 Patient visited by Les Wills PCA. jrd 06:51 Discontinued lock intact, bleeding controlled, pressure dressing applied, No ko2 redness/swelling at site. No procedures done that require assistance. 06:52 The patient / caregiver is instructed regarding the plan of care and ED course. ko2 12:28 T-Sheet-- Draft Copy was scanned into [employer] and attached to record. gb 12:28 Radiology Report was scanned into [employer] and attached to record. gb 13:45 PCR was scanned into [employer] and attached to record. gb Administered Medications: 04:15 Drug: NS 0.9% 1000 ml [sodium chloride 0.9 % intravenous solution] Route: IV; Rate: ko2 bolus; Site: right antecubital; 04:15 Drug: Ondansetron 4 mg [ondansetron HCl 2 mg/mL intravenous solution (2 mL)] Route: ko2 IVP; Site: right antecubital; 04:15 Drug: ketorolac 30 mg [ketorolac 30 mg/mL (1 mL) injection solution (1 mL)] Route: IVP; ko2 Site: right antecubital; Order Results: Lab Order: -Influenza A&B Rapid Antigen - Nose; SPEC'M 03/20/16 03:32 Test: INFLUENZA A RAPID SCR by ICA; Value: INFLUENZA A RESULTS NEGATIVE; Status: F Test: INFLUENZA A RAPID SCR by ICA; Value: Comments:; Status: F Test: INFLUENZA B RAPID SCR by ICA; Value: INFLUENZA B RESULTS NEGATIVE; Status: F Test Note: ; The Influenza test is a direct rapid immunoassay for the qualitative detection of Influenza viral antigen. Cell culture (Viral Culture) testing should be considered to confirm NEGATIVE results and to assist in detecting other viruses that can provide similar clinical symptoms. Please contact the lab within 24 hours ([phone]) if confirmatory testing is desired. Lab Order: Amylase; SPEC'M 03/20/16 04:03 Test: AMYLASE; Value: 62; Range: 25-115; Units: U/L; Status: F Lab Order: Basic Metabolic Profile; SPEC'M 03/20/16 04:03 Test: GLUCOSE, FASTING; Value: 102; Range: 70-105; Units: MG/DL; Status: F Test: BLOOD UREA NITROGEN; Value: 8; Range: 7-18; Units: MG/DL; Status: F Test: CREATININE FOR GFR; Value: 1.21; Range: 0.70-1.30; Units: MG/DL; Status: F Test: GLOMERULAR FILTRATION RATE; Value: > 60.0; Range: >60; Status: F Test: SODIUM LEVEL; Value: 145; Range: 136-145; Units: MEQ/L; Status: F Test: POTASSIUM SERUM; Value: 3.9; Range: 3.5-5.1; Units: MEQ/L; Status: F Test: CHLORIDE LEVEL; Value: 104; Range: 98-107; Units: MEQ/L; Status: F Test: CARBON DIOXIDE LEVEL; Value: 30; Range: 21-32; Units: MEQ/L; Status: F Test: ANION GAP; Value: 11; Range: 8-16; Units: MEQ/L; Status: F Test: CALCIUM LEVEL; Value: 8.5; Range: 8.5-10.1; Units: MG/DL; Status: F Test Note: ; Units are mL/min/1.73 m2 Chronic Kidney Disease Staging per NKF: Stage I & II GFR >=60 Normal to Mildly Decreased Stage III GFR 30-59 Moderately Decreased Stage IV GFR 15-29 Severely Decreased Stage V GFR <15 Very Little GFR Left ESRD GFR <15 on MAGNETIC TESTING TECHNICIAN Lab Order: CBC with Diff; SPEC'M 03/20/16 04:03 Test: WHITE BLOOD COUNT; Value: 18.4; Range: 4.0-10.0; Abnormal: Above high normal; Units: K/mm3; Status: F Test: RED BLOOD COUNT; Value: 5.19; Range: 4.30-6.10; Units: M/mm3; Status: F Test: HEMOGLOBIN; Value: 15.4; Range: 14.0-18.0; Units: g/dl; Status: F Test: HEMATOCRIT; Value: 48.1; Range: 42.0-52.0; Units: %; Status: F Test: MEAN CORPUSCULAR VOLUME; Value: 92.7; Range: 80.0-96.0; Units: fl; Status: F Test: MEAN CORPUSCULAR HEMOGLOBIN; Value: 29.7; Range: 27.0-33.0; Units: pg; Status: F Test: MEAN CORPUSCULAR HGB CONC; Value: 32.1; Range: 32.0-36.5; Units: g/dl; Status: F Test: RED CELL DISTRIBUTION WIDTH; Value: 13.5; Range: 11.5-14.5; Units: %; Status: F Test: PLATELET COUNT, AUTOMATED; Value: 422; Range: 150-450; Units: k/mm3; Status: F Test: NEUTROPHILS %; Value: 83.9; Range: 36.0-66.0; Abnormal: Above high normal; Units: %; Status: F Test: LYMPH %; Value: 5.8; Range: 24.0-44.0; Abnormal: Below low normal; Units: %; Status: F Test: MONO %; Value: 8.0; Range: 0.0-5.0; Abnormal: Above high normal; Units: %; Status: F Test: EOS %; Value: 0.6; Range: 0.0-3.0; Units: %; Status: F Test: BASO %; Value: 1.0; Range: 0.0-1.0; Units: %; Status: F Test: LARGE UNSTAINED CELL %; Value: 0.6; Range: 0.0-4.0; Units: %; Status: F Test: NEUTROPHILS #; Value: 15.4; Range: 1.8-7.7; Abnormal: Above high normal; Units: K/mm3; Status: F Test: LYMPH #; Value: 1.2; Range: 1.5-4.5; Abnormal: Below low normal; Units: K/mm3; Status: F Test: MONO #; Value: 1.5; Range: 0.0-0.8; Abnormal: Above high normal; Units: K/mm3; Status: F Test: EOS #; Value: 0.1; Range: 0.0-0.50; Units: K/mm3; Status: F Test: BASO #; Value: 0.2; Range: 0.0-0.2; Units: K/mm3; Status: F Test: LARGE UNSTAINED CELL #; Value: 0.1; Range: 0.0-0.4; Units: K/mm3; Status: F Lab Order: Lipase; SPEC'M 03/20/16 04:03 Test: LIPASE; Value: 113; Range: 73-393; Units: U/L; Status: F Lab Order: Liver Profile; SPEC'M 03/20/16 04:03 Test: AST/SGOT; Value: 18; Range: 15-37; Units: U/L; Status: F Test: ALT/SGPT; Value: 39; Range: 12-78; Units: U/L; Status: F Test: ALKALINE PHOSPHATASE; Value: 93; Range: 45-117; Units: U/L; Status: F Test: BILIRUBIN,TOTAL; Value: 0.6; Range: 0.2-1.0; Units: MG/DL; Status: F Test: BILIRUBIN,DIRECT; Value: 0.2; Range: 0.0-0.2; Units: MG/DL; Status: F Test: TOTAL PROTEIN; Value: 7.0; Range: 6.4-8.2; Units: GM/DL; Status: F Test: ALBUMIN; Value: 3.8; Range: 3.2-5.2; Units: GM/DL; Status: F Test: ALBUMIN/GLOBULIN RATIO; Value: 1.19; Range: 1.00-1.93; Status: F Lab Order: Urinalysis; SPEC'M 03/20/16 04:03 Test: APPEARANCE, URINE; Value: CLEAR; Range: CLEAR; Status: F Test: COLOR, URINE; Value: YELLOW; Range: YELLOW; Status: F Test: PH,URINE; Value: 8.0; Range: 5.0-9.0; Units: UNITS; Status: F Test: SPECIFIC GRAVITY URINE AUTO; Value: 1.015; Range: 1.002-1.035; Status: F Test: PROTEIN, URINE AUTO; Value: NEGATIVE; Range: NEGATIVE; Units: mg/dL; Status: F Test: GLUCOSE, URINE (UA) AUTO; Value: NEGATIVE; Range: NEGATIVE; Units: mg/dL; Status: F Test: KETONE, URINE AUTO; Value: NEGATIVE; Range: NEGATIVE; Units: mg/dL; Status: F Test: UROBILINOGEN, URINE AUTO; Value: 2.0; Range: 0.0-2.0; Abnormal: Above high normal; Units: mg/dL; Status: F Test: BILIRUBIN, URINE AUTO; Value: NEGATIVE; Range: NEGATIVE; Status: F Test: NITRITE, URINE AUTO; Value: NEGATIVE; Range: NEGATIVE; Status: F Test: LEUKOCYTE ESTERASE, URINE AUTO; Value: TRACE; Range: NEGATIVE; Abnormal: Above high normal; Status: F Test: BLOOD, URINE BLOOD; Value: NEGATIVE; Range: NEGATIVE; Status: F Test: WBC, URINE AUTO; Value: 23; Range: 0-3; Abnormal: Above high normal; Units: /HPF; Status: F Test: RBC, URINE AUTO; Value: 2; Range: 0-3; Units: /HPF; Status: F Test: BACTERIA, URINE AUTO; Value: 1+; Range: NEGATIVE; Abnormal: Above high normal; Status: F Test: SQUAMOUS EPITHELIAL CELL UR AU; Value: 0; Range: 0-6; Units: /HPF; Status: F Test: MUCUS, URINE; Value: SMALL; Range: NEGATIVE; Status: F Test: HYALINE CAST, URINE AUTO; Value: 0; Range: 0-1; Units: /LPF; Status: F Lab Order: Urine Culture; SPEC'M 03/20/16 04:03 Test: URINE CULTURE; Value: ORGANISM 1: SERRATIA MARCESCENS; Status: F Test: URINE CULTURE; Value: SERRATIA MARCESCENS; Status: F Test: URINE CULTURE; Value: COLONY COUNT CFU/ml 30,000; Status: F Test: URINE CULTURE; Value: GRAM NEG SENSI - VITEK 80; Status: F Test: URINE CULTURE; Value: Method: VIT2; Status: F Test: URINE CULTURE; Value: TRIMETHOPRIM/SULFAMETHOXAZOLE <=20 S; Status: F Test: URINE CULTURE; Value: GENTAMICIN <=1 S; Status: F Test: URINE CULTURE; Value: NITROFURANTOIN 128 R; Status: F Test: URINE CULTURE; Value: CEFAZOLIN >=64 R; Status: F Test: URINE CULTURE; Value: LEVOFLOXACIN <=0.12 S; Status: F Test: URINE CULTURE; Value: TOBRAMYCIN 4 S; Status: F Test: URINE CULTURE; Value: CEFTRIAXONE <=1 S; Status: F Test: URINE CULTURE; Value: CEFTAZIDIME <=1 S; Status: F Test: URINE CULTURE; Value: AZTREONAM <=1 S; Status: F Test: URINE CULTURE; Value: ERTAPENEM <=0.5 S; Status: F Test: URINE CULTURE; Value: MEROPENEM <=0.25 S; Status: F Test: URINE CULTURE; Value: TIGECYCLINE 1 S; Status: F Test: URINE CULTURE; Value: CEFEPIME <=1 S; Status: F Lab Order: Drug Eval Toxicology ED Only; SPEC'M 03/20/16 04:03 Test: AMPHETAMINES LEVEL URINE; Value: NEGATIVE; Range: NEGATIVE; Status: F Test: BARBITURATES URINE; Value: NEGATIVE; Range: NEGATIVE; Status: F Test: BENZODIAZEPINES URINE; Value: NEGATIVE; Range: NEGATIVE; Status: F Test: CANNABINOIDS URINE; Value: NEGATIVE; Range: NEGATIVE; Status: F Test: COCAINE METABOLITE URINE; Value: NEGATIVE; Range: NEGATIVE; Status: F Test: METHADONE URINE; Value: NEGATIVE; Range: NEGATIVE; Status: F Test: OPIATES URINE; Value: NEGATIVE; Range: NEGATIVE; Status: F Test: TRICYCLIC ANTIDEPRESS URINE; Value: NEGATIVE; Range: NEGATIVE; Status: F Test Note: ; ALL PRESUMPTIVE POSITIVE FINDINGS ARE UNCONFIRMED NORMAL VALUES THRESHOLD IN NG/ML AMPHETAMINES 1000 METHAMPHETAMINES 1000 BARBITURATES 300 BENZODIAZEPINES 300 CANNABINOIDS (THC) 50 COCAINE METABOLITE 300 METHADONE 300 OPIATES 300 PHENCYCLIDINE 25 TRICYCLIC ANTIDEPRESSANTS 1000 RESULTS ARE FOR MEDICAL PURPOSES ONLY. ALL URINE SPECIMENS WILL BE SAVED FOR 3 DAYS. IF CONFIRMATION OF A PRESUMPTIVE POSTIVE SCREEN RESULT IS DESIRED, CALL CHEMISTRY ([phone]) AND REQUEST URINE TO BE SENT TO REFERENCE LAB. FOR A LIST OF CLOSELY RELATED COMPOUNDS PLEASE CALL THE LAB. Radiology Order: CT ABD & PELVIS: IV Contrast Only Test: CT ABD & PELVIS: IV Contrast Only REASON FOR EXAMINATION: Abdomen Pain; ; CLINICAL HISTORY: Abdominal pain.; TECHNIQUE: Multiple axial, sagittal and coronal CT images were obtained through the abdomen and pelvi; s after administration of intravenous contrast material.; COMMENTS:; Moderate large bowel fecal stasis.; The liver is of uniform attenuation without mass or defect. There is no intra or extrahepatic biliary; ductal dilatation. The spleen is normal. The gallbladder is within normal limits. The pancreas is of; normal contour and attenuation characteristics. There is no evidence of adrenal mass.; Both kidneys demonstrate prompt and equal nephrograms. The kidneys are normal in size, shape and conf; iguration. There is no evidence of renal or ureteral mass. No renal or ureteral calculi are identifie; d. There is no hydroureter or hydronephrosis.; No evidence for appendicitis. There is no bowel wall thickening. No evidence for small or large clair; l obstruction. There is no evidence of abdominal ascites or lymphadenopathy.; There is no evidence of intrinsic or extrinsic bladder mass. There is no pelvic ascites or lymphadeno; [place].; Images of the lung bases show no evidence of pleural or parenchymal mass. Minimal right pleural effus; ion.; Atelectatic airspace disease of the lower lobes.; The bony structures are free of lytic or blastic lesions. Mild diffuse thickening of the wall of the; bladder.; IMPRESSION:; Large bowel fecal stasis.; Minimal right pleural effusion.; Passive atelectatic airspace disease of the lower lobes.; Mildly thickened bladder.; Thank you for your kind referral of this patient.; ; Outcome: 06:39 Discharge ordered by Provider. mm11 06:51 Admission hand-off: Report called to [facility] at [facility]. mar 06:52 Discharge Assessment: Patient awake, alert and oriented x 3. No cognitive and/or ko2 functional deficits noted. Patient verbalized understanding of disposition instructions. patient administered narcotics - no. The following High Risk Discharge criteria are identified: None. Discharged to [facility]. Condition: stable. Discharge instructions given to patient, Instructed on discharge instructions, follow up and referral plans. Demonstrated understanding of instructions, Pt was receptive of discharge instructions/ teaching. CT Study completed. Property :Personal belongings accompany Pt. 06:55 Patient left the ED. ko2 Signatures: Dispatcher [employer] EDMS Emilie Meyer RN RN jan Barnhardt, Gloria, Reg Reg gb Alize Braden, Plastic Top Assembler Unit ml3 Sj Pat, DO mm11 Tanya Harper, ICT PROGRAMMER ICT PROGRAMMER Yoselin Zambrano RN RN ko2 Les Wills, ICT PROGRAMMER ICT PROGRAMMER Kusum Harding, Reg Reg hs2 Chart Complete MTDD
== END 2016-03-20 06:55 | disposition home or self-care (01) ==
LOC: M ED 02:59
DX: K52.9 Noninfective gastroenteritis and colitis, unspecified (principal); J45.909 Unspecified asthma, uncomplicated; Z87.891 Personal history of nicotine dependence
CPT/HCPCS: 74177; 80048; 80076; 80306; 81001; 82150; 83690; 85025; 87088; 87186; 87804; 96374; 96375; 99284; J1885; J2405; Q9967